=== PATIENT | male | born 1990 | race Caucasian/White ===

== ENCOUNTER 2016-08-18 11:52 | Emergency (ER) | payer OTHER ==
--- NOTE | 2016-08-24 16:10 | ER ---
ADMIT: 08/18/2016 RM/LOC: [facility] [place] MR#: [id number] [address] [id number] MANUEL COLEMAN [address] [place] [address] Emergency Room Report SEX: M AGE: 25 : 1990 DATE: 08/18/2016 ADDENDUM: CHIEF COMPLAINT: Left flank pain. HISTORY OF PRESENT ILLNESS: This is a 25-year-old who developed this left lower quadrant left flank pain just 1 hour prior to arrival. He rates his pain at 10/10. PAST MEDICAL HISTORY: None. MEDICATIONS: Just Tylenol as needed. He took prior to arrival. ALLERGIES: NO KNOWN ALLERGIES. SOCIAL HISTORY: Denies any drug use. Drinks alcohol occasionally. FAMILY HISTORY: Noncontributory. PHYSICAL EXAMINATION: VITAL SIGNS: Blood pressure is 166/78, pulse is 81, respirations 16, temperature is 96.2, saturation of oxygen is 99% on room air. GENERAL APPEARANCE: He is in [id number] distress and diaphoretic. HEENT: Pharynx is moist. No tonsillar swelling or exudate. HEART: Regular rate and rhythm. LUNGS: CTA bilaterally. No wheezes, rales, or rhonchi. ABDOMEN: Soft. He does have some tenderness in the left lower quadrant. GENITALIA: I did inspect the left testicle, it is tender with any kind of palpation. SKIN: Normal color, warm, and dry. No rashes noted. BACK: He does have some CVA tenderness on the left. NEURO AND PSYCH: He is alert and oriented x3. Mood and affect normal. EXTREMITIES: Full range of motion with all extremities. ADMIT: 08/18/2016 RM/LOC: [facility] [place] MR#: [id number] [address] [id number] MANUEL COLEMAN [address] [place] [address] Emergency Room Report SEX: M AGE: 25 : 1990 COURSE IN THE EMERGENCY ROOM: I initially did an ultrasound of the left testicle, it is negative for any acute findings. CBC, BMP, and renal colic was done. Renal colic shows that he has a 3.9 mm stone, just 2 mm below the kidney with mild hydro. His CMP is normal except for glucose of 129, chloride 111, calcium is actually a little bit low at 8.0. CBC is normal except for white count of 17.6. I am prescribing him Percocet and Phenergan for pain and nausea, have him follow up with urologist if his symptoms continue. I am having a followup with his primary care physician regarding the lower calcium level. CLINICAL IMPRESSION: Renal colic. YOUNG Cody / Vinicio Rosas MD / patrice JOB #: [id number] CC: Vinicio Rosas MD, Attending Physician UNKNOWN, Family Physician
== END 2016-08-18 16:00 | disposition home or self-care (01) ==
LOC: ER 11:52
DX: N23 Unspecified renal colic (principal); E83.51 Hypocalcemia